=== PATIENT | male | born 1995 | race Caucasian/White ===

== ENCOUNTER 2019-07-27 23:07 | Emergency (ER) | payer BC, OTHER ==
[~2019-07-27] VITALS: Ht 180 cm; Wt 79.3 kg
--- OUTSIDE RECORDS SUMMARY | 2019-07-27 23:16 | XMS REPORT | Continuity of Care Document ---
Author Organization Unknown Address Unknown Phone Unavailable Allergies There is no data. Medications There is no data. Problems There is no data. Procedures There is no data. Results There is no data. Encounters ACCT No. Visit Date/Time Discharge Status Pt. Type Provider Facility Loc./Unit Complaint [id number] 07/30/2018 10:40:00 07/30/2018 23:59:5 9 CLS Outpatient ODILIA GOLDBERG [facility]
[2019-07-27 23:39] LABS: BASOPHILS # (AUTO) 0.1 10^3/uL (0.0-0.1); BASOPHILS % (AUTO) 1 % (0-10); EOSINOPHILS # (AUTO) 0.1 10^3/uL (0.0-0.3); EOSINOPHILS % (AUTO) 2 % (0-10); HEMATOCRIT 41 % (40-54); HEMOGLOBIN 15.2 G/DL (13.3-17.7); LYMPHOCYTES # (AUTO) 3.1 X 10^3 (1.0-4.0); LYMPHOCYTES % (AUTO) 42 % (12-44); MEAN CORPUSCULAR HEMOGLOBIN 30 PG (25-34); MEAN CORPUSCULAR HGB CONC 37 G/DL (32-36); MEAN CORPUSCULAR VOLUME 82 FL (80-99); MEAN PLATELET VOLUME 11.2 FL (7.4-10.4); MONOCYTES # (AUTO) 0.4 X 10^3 (0.0-1.0); MONOCYTES % (AUTO) 6 % (0-12); NEUTROPHILS # (AUTO) 3.5 X 10^3 (1.8-7.8); NEUTROPHILS % (AUTO) 49 % (42-75); PLATELET COUNT 195 10^3/uL (130-400); RED CELL DISTRIBUTION WIDTH 12.3 % (10.0-14.5); WHITE BLOOD COUNT 7.2 10^3/uL (4.3-11.0)
--- NOTE | 2019-07-27 23:39 | ED General ---
General Chief Complaint: Glucose Problems Stated Complaint: HYPERGLYCEMIA Nursing Triage Note: PT AMBULATES TO RM 6 WITH C/O HYPERGLYCEMIA. PT STATES HE HAS BEEN FEELING MORE FATIGUED THE LAST 2 WEEKS AND EXPERIENCED POLYURIA WHICH LEAD HIM TO CHECKING HIS BLOOD SUGAR. PT STATES BS HAS BEEN 400-500 TODAY. BS 260 ON ARRIVAL. PT DENIES ANY OTHER SYMPTOMS AT THIS TIME. Nursing Sepsis Screen: No Definite Risk Source of Information: Patient History of Present Illness Date Seen by Provider: Jul 27, 2019 Time Seen by Provider: 23:20 Initial Comments PT ARRIVES VIA POV FROM HOME STATES FOR THE LAST 2 WEEKS, HE HAS BEEN VERY THIRSTY AND URINATING ALL THE TIME 2 DAYS AGO, HE WAS EXHAUSTED AFTER WORKING OUT HAS BEEN CHECKING HIS BLOOD SUGAR, AND IT HAS BEEN HIGH, AND TODAY "IT WAS OVER 500 ALL DAY" PT STATES HE IS NOT DIABETIC/NO HISTORY OF DIABETES IN HIMSELF OR ANY FAMILY MEMBERS STATES HE WOR[facility] [employer] [facility], AND HAS BEEN USING THE GLUCOMETER THERE TO CHECK HIS BLOOD SUGAR HAS ALSO BEEN USING A FRIEND'S STRIPS TO CHECK FOR KETONES IN URINE--STATES IT HAS READ "HIGH" MULTIPLE TIMES NO RECENT ILLNESS OR FEVER NO NAUSEA/VOMITING/DIARRHEA OR ABDOMINAL PAIN PT HAS NO OTHER SYMPTOMS. PT STATES HE DOES NOT HAVE ANY OTHER MEDICAL PROBLEMS NO CHANGES IN APPETITE--ATE 2 DOUBLE CHEESEBURGERS AND FRIES FROM [employer] [place] FOR LUNCH, AND HAD PORK LOIN AND GREEN BEANS FOR DINNER DOES NOT KNOW HOW MUCH HE HAS HAD TO DRINK TODAY. NO CHANGES IN WEIGHT STATES HIS VISION IS POSSIBLY A LITTLE BIT OUT OF FOCUS--"THINGS LOOK FARTHER AWAY" --PT WEARS GLASSES PCP: NONE--USED TO SEE DR. MARKS AT [facility], BUT HE CLOSED HIS OFFICE IN [facility]. Allergies and Home Medications Allergies Coded Allergies: No Known Drug Allergies (Unverified , 07/27/19) Patient Home Medication List Home Medication List Reviewed: Yes Review of Systems Review of Systems Constitutional: see HPI, malaise EENTM: see HPI, blurred vision; No ear pain, No nose congestion, No throat pain Respiratory: no symptoms reported; No cough, No short of breath, No wheezing Cardiovascular: no symptoms reported Gastrointestinal: no symptoms reported; No abdominal pain, No diarrhea, No loss of appetite, No nausea, No vomiting Genitourinary: see HPI, frequency Musculoskeletal: no symptoms reported Skin: no symptoms reported; No rash Psychiatric/Neurological: No Symptoms Reported; Denies Headache, Denies Numbness, Denies Paresthesia, Denies Tingling, Denies Tremors, Denies Weakness Hematologic/Lymphatic: No Symptoms Reported Immunological/Allergic: no symptoms reported Past Kukbxnd-Oenfeb-Tdhmtw Hx Past Med/Social Hx: Reviewed and Corrections made Patient Social History Alcohol Use: Occasionally Uses Recreational Drug Use: No Smoking Status: Never a Smoker Recent Foreign Travel: No Contact w/Someone Who Travel: No Recent Infectious Disease Expo: No Past Medical History Surgeries: No Respiratory: No Cardiac: No Neurological: No Reproductive Disorders: No Genitourinary: No Gastrointestinal: No Musculoskeletal: No Endocrine: No HEENT: No Cancer: No Psychosocial: No Integumentary: No Blood Disorders: No Physical Exam Vital Signs Vital Signs - First Documented 07/27/19 23:21 Temp 36.6 Pulse 82 Resp 20 B/P (MAP) 144/92 (109) Pulse Ox 99 O2 Delivery Room Air Capillary Refill : Less Than 3 Seconds Height, Weight, BMI Height: '" Weight: lbs. oz. kg; 25.00 BMI Method: General Appearance: No Apparent Distress, Thin, Other (DOES NOT APPEAR ILL OR TO BE IN ANY DISCOMFORT OR DISTRESS) HEENT: PERRL/EOMI, TMs Normal, Normal ENT Inspection, Pharynx Normal, Moist Mucous Membranes Neck: Full Range of Motion, Normal Inspection, Non Tender, Supple Respiratory: Normal Breath Sounds, No Accessory Muscle Use, No Respiratory Distress Cardiovascular: Regular Rate, Rhythm, No Edema, No JVD, No Murmur, Normal Peripheral Pulses Gastrointestinal: Normal Bowel Sounds, No Organomegaly, No Pulsatile Mass, Non Tender, Soft Back: Normal Inspection, No CVA Tenderness, No Vertebral Tenderness Extremity: Normal Capillary Refill, Normal Inspection, Normal Range of Motion, Non Tender, No Calf Tenderness, No Pedal Edema Neurologic/Psychiatric: Alert, Oriented x3, No Motor/Sensory Deficits, Normal Mood/Affect, bottom presser II-XII Norm as Tested Skin: Normal Color, Warm/Dry; No Rash Focused Exam Lactate Level 07/27/19 23:26: Lactic Acid Level 0.89 Lactic Acid Level Progress/Results/Core Measures Suspected Sepsis Recent Fever Within 48 Hours: No Infection Criteria Present: None New/Unexplained Altered Menta: No Sepsis Screen: No Definite Risk SIRS Temperature: Pulse: 82 Respiratory Rate: 20 Laboratory Tests 07/27/19 23:26: White Blood Count 7.2 Blood Pressure 144 /92 Mean: 109 07/27/19 23:26: Lactic Acid Level 0.89 Laboratory Tests 07/27/19 23:26: Creatinine 1.34H, Platelet Count 195, Total Bilirubin 0.5 Results/Orders Lab Results Laboratory Tests Test 07/27/19 23:24 07/27/19 23:26 07/27/19 23:32 07/27/19 23:40 Range/Units Glucometer 260 H 70-110 MG/DL White Blood Count 7.2 4.3-11.0 10^3/uL Red Blood Count 5.03 4.35-5.85 10^6/uL Hemoglobin 15.2 13.3-17.7 G/DL Hematocrit 41 40-54 % Mean Corpuscular Volume 82 80-99 FL Mean Corpuscular Hemoglobin 30 25-34 PG Mean Corpuscular Hemoglobin Concent 37 H 32-36 G/DL Red Cell Distribution Width 12.3 10.0-14.5 % Platelet Count 195 130-400 10^3/uL Mean Platelet Volume 11.2 H 7.4-10.4 FL Neutrophils (%) (Auto) 49 42-75 % Lymphocytes (%) (Auto) 42 12-44 % Monocytes (%) (Auto) 6 0-12 % Eosinophils (%) (Auto) 2 0-10 % Basophils (%) (Auto) 1 0-10 % Neutrophils # (Auto) 3.5 1.8-7.8 X 10^3 Lymphocytes # (Auto) 3.1 1.0-4.0 X 10^3 Monocytes # (Auto) 0.4 0.0-1.0 X 10^3 Eosinophils # (Auto) 0.1 0.0-0.3 10^3/uL Basophils # (Auto) 0.1 0.0-0.1 10^3/uL Sodium Level 139 135-145 MMOL/L Potassium Level 3.9 3.6-5.0 MMOL/L Chloride Level 102 98-107 MMOL/L Carbon Dioxide Level 19 L 21-32 MMOL/L Anion Gap 18 H 5-14 MMOL/L Blood Urea Nitrogen 14 7-18 MG/DL Creatinine 1.34 H 0.60-1.30 MG/DL Estimat Glomerular Filtration Rate > 60 BUN/Creatinine Ratio 10 Glucose Level 315 H 70-105 MG/DL Lactic Acid Level 0.89 0.50-2.00 MMOL/L Calcium Level 9.5 8.5-10.1 MG/DL Corrected Calcium 8.5-10.1 MG/DL Magnesium Level 2.1 1.6-2.4 MG/DL Total Bilirubin 0.5 0.1-1.0 MG/DL Aspartate Amino Transf (AST/SGOT) 26 5-34 U/L Alanine Aminotransferase (ALT/SGPT) 32 0-55 U/L Alkaline Phosphatase 87 40-136 U/L Total Protein 7.9 6.4-8.2 GM/DL Albumin 4.7 H 3.2-4.5 GM/DL Amylase Level 67 25-125 U/L Lipase 34 8-78 U/L Monoscreen NEGATIVE NEGATIVE Group A Streptococcus Screen NEGATIVE NEGATIVE Urine Color YELLOW Urine Clarity CLEAR Urine pH 6.0 5-9 Urine Specific Reeder 1.025 H 1.016-1.022 Urine Protein NEGATIVE NEGATIVE Urine Glucose (UA) 3+ H NEGATIVE Urine Ketones 3+ H NEGATIVE Urine Nitrite NEGATIVE NEGATIVE Urine Bilirubin NEGATIVE NEGATIVE Urine Urobilinogen 0.2 < = 1.0 MG/DL Urine Leukocyte Esterase NEGATIVE NEGATIVE Urine RBC (Auto) NEGATIVE NEGATIVE Urine RBC NONE /HPF Urine WBC NONE /HPF Urine Squamous Epithelial Cells 0-2 /HPF Urine Crystals PRESENT H /LPF Urine Amorphous Sediment RARE MILLY URATES H /LPF Urine Bacteria NEGATIVE /HPF Urine Casts NONE /LPF Urine Mucus NEGATIVE /LPF Urine Culture Indicated NO Urine Opiates Screen NEGATIVE NEGATIVE Urine Oxycodone Screen NEGATIVE NEGATIVE Urine Methadone Screen NEGATIVE NEGATIVE Urine Propoxyphene Screen NEGATIVE NEGATIVE Urine Barbiturates Screen NEGATIVE NEGATIVE Ur Tricyclic Antidepressants Screen NEGATIVE NEGATIVE Urine Phencyclidine Screen NEGATIVE NEGATIVE Urine Amphetamines Screen NEGATIVE NEGATIVE Urine Methamphetamines Screen NEGATIVE NEGATIVE Urine Benzodiazepines Screen NEGATIVE NEGATIVE Urine Cocaine Screen NEGATIVE NEGATIVE Urine Cannabinoids Screen NEGATIVE NEGATIVE Blood Gas Puncture Site RIGHT RADIAL Blood Gas Patient Temperature 36.6 Arterial Blood pH 7.40 7.37-7.43 Arterial Blood Partial Pressure CO2 35 35-45 MMHG Arterial Blood Partial Pressure O2 102 H 79-93 MMHG Arterial Blood HCO3 21 L 23-27 MMOL/L Arterial Blood Total CO2 22.1 21.0-31.0 MMOL/L Arterial Blood Oxygen Saturation 99 94-100 % Arterial Blood Base Excess -3.1 L -2.5-2.5 MMOL/L Loi Test YES-POS Blood Gas Ventilator Setting NO Blood Gas Inspired Oxygen ROOM AIR Test 07/28/19 00:42 Range/Units Glucometer 258 H 70-110 MG/DL My Orders Orders - MIR KC DO Accucheck Stat ONCE (07/27/19 23:13) Ed Iv/Invasive Line Start (07/27/19 23:21) Amylase (07/27/19 23:21) Arterial Blood Gas (07/27/19 23:21) Cbc With Automated Diff (07/27/19 23:21) Comprehensive Metabolic Panel (07/27/19 23:21) Drug Screen Stat (Urine) (07/27/19 23:21) Lactic Acid Analyzer (07/27/19 23:21) Lipase (07/27/19 23:21) Magnesium (07/27/19 23:21) Monotest (07/27/19 23:21) Rapid Strep A Screen (07/27/19 23:21) Ua Culture If Indicated (07/27/19 23:21) Hemoglobin A1c (07/27/19 23:32) Ed Iv/Invasive Line Start (07/27/19 23:40) Ns Iv 1000 Ml (Sodium Chloride 0.9%) (07/27/19 23:40) Ed Iv/Invasive Line Start (07/28/19 00:12) Ns Iv 1000 Ml (Sodium Chloride 0.9%) (07/28/19 00:12) Accucheck Stat ONCE (07/28/19 00:19) Vital Signs/I&O 07/27/19 07/28/19 23:21 00:51 Temp 36.6 36.6 Pulse 82 60 Resp 20 20 B/P (MAP) 144/92 (109) 112/79 (109) Pulse Ox 99 99 O2 Delivery Room Air Room Air Capillary Refill : Less Than 3 Seconds Blood Pressure Mean: 109 Point of Care Testing Finger Stick Blood Glucose: 260 Blood Glucose Action Taken: DR KC NOTIFIED Progress Note : Progress Note UNEVENTFUL ER STAY GIVEN 2 LITERS OF FLUIDS BLOOD GLUCOSE DOWN AT DISMISSAL PT HAD NO COMPLAINTS DURING ER STAY PT STATES HE WOULD LIKE TO FOLLOW UP WITH [facility] FOR FURTHER CARE PT ADVISED OF LIKELIHOOD THAT HE IS DIABETIC, BUT DID NOT REQUIRE HOSPITALIZATION AT THIS TIME, HE IS NOT IN DKA, AND BLOOD GLUCOSE IS LESS THAN 300 ADVISED OF POSSIBLE NEED FOR ADDITIONAL TESTING/FURTHER EVALUATION TO DETERMINE WHAT MEDICATION REGIMEN HE NEEDS AND WHETHER HE IS TYPE 1-LATE ONSET, OR TYPE 2. HE APPEARS TO UNDERSTAND Departure Impression Primary Impression: HYPERGLYCEMIA--NEW ONSET Additional Impression: Mild renal insufficiency Disposition: HOME, SELF-CARE Condition: Stable Departure-Patient Inst. Referrals: NO,LOCAL PHYSICIAN (PCP) Primary Care Physician [facility] Patient Instructions: Blood Glucose Monitoring, Carbohydrate Counting Diet, Hyperglycemia, Adult (DC), Low Carbohydrate Diet, The ABCs of Diabetes Add. Discharge Instructions: PURCHASE YOUR OWN GLUCOMETER, AND CHECK YOUR BLOOD SUGAR AT LEAST 3 TIMES A DAY, AND KEEP DIARY. CHECK FASTING IN THE MORNING AND BEFORE EACH MEAL, OR 2 HOURS AFTER EATING. KEEP FOOD DIARY OF EVERYTHING YOU EAT OR DRINK AND HOW MUCH FOLLOW UP WITH [facility] NEXT WEEK FOR FURTHER CARE--CALL MONDAY MORNING TO SCHEDULE APPOINTMENT RETURN TO ER IF SYMPTOMS WORSEN All discharge instructions reviewed with patient and/or family. Voiced understanding. MIR KC DO Jul 27, 2019 23:39
[2019-07-27] MEDS ORDERED: NS IV 1000 ML 1,000 ML IV SCH (23:40)
[2019-07-27 23:41] LABS: BILIRUBIN,URINE NEGATIVE (NEGATIVE); CLARITY,URINE CLEAR; COLOR,URINE YELLOW; GLUCOSE, URINE (UA) 3+ (NEGATIVE); KETONES,URINE 3+ (NEGATIVE); LEUKOCYTE ESTERASE ,URINE NEGATIVE (NEGATIVE); NITRITE,URINE NEGATIVE (NEGATIVE); PROTEIN,URINE NEGATIVE (NEGATIVE)
[2019-07-27 23:47] LABS: ALBUMIN 4.7 GM/DL (3.2-4.5)
[2019-07-27 23:48] LABS: CHLORIDE 102 MMOL/L (98-107); POTASSIUM 3.9 MMOL/L (3.6-5.0); SODIUM 139 MMOL/L (135-145)
[2019-07-27 23:48] LABS: ABG BASE EXCESS -3.1 MMOL/L (-2.5-2.5); ABG OXYGEN SATURATION 99 % (94-100); ABG PCO2 35 MMHG (35-45); ABG PO2 102 MMHG (79-93); ABG TCO2 22.1 MMOL/L (21.0-31.0)
[2019-07-27 23:49] LABS: AMYLASE 67 U/L (25-125); CALCIUM 9.5 MG/DL (8.5-10.1)
[2019-07-27 23:49] LABS: ALLENS TEST YES-POS; INSPIRED O2 ROOM AIR; PATIENT TEMP 36.6; VENTILATOR NO
[2019-07-27 23:50] LABS: GLUCOSE 315 MG/DL (70-105); TOTAL PROTEIN 7.9 GM/DL (6.4-8.2)
[2019-07-27 23:51] LABS: CARBON DIOXIDE 19 MMOL/L (21-32)
[2019-07-27 23:52] LABS: BILIRUBIN,TOTAL 0.5 MG/DL (0.1-1.0)
[2019-07-27 23:53] LABS: ALKALINE PHOSPHATASE 87 U/L (40-136)
[2019-07-27 23:54] LABS: CREATININE SERUM 1.34 MG/DL (0.60-1.30); GFR ESTIMATED > 60
[2019-07-27 23:55] LABS: BUN/CREATININE RATIO 10
[2019-07-27 23:57] LABS: ALANINE AMINOTRANSFERASE 32 U/L (0-55); MAGNESIUM 2.1 MG/DL (1.6-2.4)
[2019-07-27 23:58] LABS: LIPASE 34 U/L (8-78)
[2019-07-28 00:09] LABS: AMPHETAMINE SCREEN, URINE NEGATIVE (NEGATIVE); BARBITURATE SCREEN URINE NEGATIVE (NEGATIVE); BENZODIAZEPINES SCREEN URINE NEGATIVE (NEGATIVE); CANNABINOID SCREEN, URINE NEGATIVE (NEGATIVE); COCAINE SCREEN URINE NEGATIVE (NEGATIVE); METHADONE STAT NEGATIVE (NEGATIVE); METHAMPHETAMINE SCREEN URINE S NEGATIVE (NEGATIVE); OPIATE SCREEN URINE NEGATIVE (NEGATIVE); OXYCODONE STAT NEGATIVE (NEGATIVE); PROPOXYPHENE STAT NEGATIVE (NEGATIVE); TRICYCLIC ANTIDEPRESSANTS SCRE NEGATIVE (NEGATIVE)
[2019-07-28 00:11] LABS: AMORPHOUS SEDIMENT,UR RARE AMOR URATES /LPF; BACTERIA,URINE NEGATIVE /HPF; SQUAMOUS EPITHELIAL CELL,UR 0-2 /HPF
[2019-07-28] MEDS ORDERED: NS IV 1000 ML 1,000 ML IV SCH (00:12)
[2019-07-28 00:51] VITALS: BP 112/79
== END 2019-07-28 00:52 | disposition home or self-care (01) ==
LOC: ER 23:12
DX: R73.9 Hyperglycemia, unspecified (principal); N28.9 Disorder of kidney and ureter, unspecified
CPT/HCPCS: 36415; 80053; 80306; 81000; 82150; 82805; 82962; 83036; 83605; 83690; 83735; 85025; 86308; 87430